=== PATIENT | female | born 1930 | race Caucasian/White ===

== ENCOUNTER 2016-11-19 13:43 | Emergency (ER) | payer MEDICARE, OTHER ==
--- NOTE | 2016-11-19 14:24 | EDM.PDOC ---
ED HPI GI/ABDOMINAL - General Chief Complaint: Gastrointestinal Problem Stated Complaint: FEEL SICK [id number] Time Seen by Provider: 11/19/16 14:24 Source of Information: Reports: Patient, RN, RN notes reviewed History Limitations: Reports: No limitations - History of Present Illness INITIAL COMMENTS - FREE TEXT/NARRATIVE: Complaining of watery diarrhea and nausea all day. Denies pain, bloating or distention. Denies bloody stool, black or dark stools. Denies fever or chills. Symptom Onset Date: 11/19/16 Timing/Duration: Reports: Getting worse Location: generalized Quality: Reports: ache Severity: moderate Associated Symptoms (-Female): Reports: denies other symptoms - Related Data Allergies/ADRs: Allergies Allergy/AdvReac Type Severity Reaction Status Date / Time codeine Allergy Cannot Verified 01/26/15 16:16 Remember Sulfa (Sulfonamide Allergy Airway Verified 01/26/15 16:16 Antibiotics) Tightness Home Meds: Home Meds Loperamide [Imodium] 2 mg PO ASDIRECTED 07/04/14 [History] Acetaminophen 325 mg PO ASDIRECTED PRN 01/26/15 [History] Levofloxacin [Levaquin] 500 mg PO Q24H 5 Days 01/28/15 [Rx] Past Medical History Other HEENT History: "wet eye gets injection every month" Other OB/BYN History: 3 vaginal deliveries Other Musculoskeletal History: "weak back" - Past Surgical History Other Musculoskeletal Surgeries/Procedures:: Right rotor cuff repair Social & Family History - Family History Family Medical History: Noncontributory - Tobacco Use Smoking Status *Q: Former Smoker Years of Tobacco use: 25 Used Tobacco, but Quit: Yes Month Tobacco Last Used: 6 Second Hand Smoke Exposure: Yes - Alcohol Use Days Per Week of Alcohol Use: 7 Number of Drinks Per Day: 2 Total Drinks Per Week: 14 - Recreational Drug Use Recreational Drug Use: No Drug Use in Last 12 Months: No - Living Situation & Occupation Occupation: retired ED ROS GENERAL - Review of Systems Review Of Systems: ROS reveals no pertinent complaints other than HPI. ED EXAM, GI/ABD - Physical Exam Exam: See Below Exam Limited By: No limitations General Appearance: alert, WD/WN, no apparent distress Eyes: bilateral: normal appearance Ears: normal external exam, normal canal, hearing grossly normal, normal TMs Nose: normal inspection, normal mucosa, no blood Throat/Mouth: Other (dry oral membranes, otherwise normal.) Head: atraumatic, normocephalic Neck: normal inspection, supple, non-tender, full range of motion Respiratory/Chest: no respiratory distress, lungs clear, normal breath sounds, no accessory muscle use, chest non-tender Cardiovascular: normal peripheral pulses, regular rate, rhythm, no edema, no gallop, no JVD, no murmur, no rub GI/Abdominal: hyperactive bowel sounds (slightly) Back Exam: normal inspection, full range of motion, NT Extremities: normal inspection, normal range of motion, non-tender, normal capillary refill, no pedal edema Neurological: alert, oriented, CN II-XII intact, normal cognition, normal gait, normal reflexes, no motor/sensory deficits Psychiatric: normal affect, normal mood Skin Exam: Warm, Dry, Intact, Normal color, No rash Course - Vital Signs Last Recorded V/S: Last Vital Signs Temp 36.7 C 11/19/16 14:58 Pulse 81 11/19/16 14:58 Resp 16 11/19/16 14:58 BP 160/57 H 11/19/16 14:58 Pulse Ox 100 11/19/16 14:58 - Orders/Labs/Meds Orders: Active Orders 24 hr Category Date Time Status Peripheral IV Care [RC] . DIRECTED Care 11/19/16 14:36 Active C DIFFICILE TOXIN BY PCR [MREF] Stat Lab 11/19/16 14:37 Uncollected CULTURE STOOL [RM] Stat Lab 11/19/16 14:36 Uncollected OCCULT BLOOD DIAGNOSTIC [OP] Stat Lab 11/19/16 14:36 Uncollected UA W/MICROSCOPIC [URIN] Stat Lab 11/19/16 16:28 Results Sodium Chloride 0.9% [Saline Flush] Med 11/19/16 14:36 Active 10 ml FLUSH ASDIRECTED PRN Peripheral IV Insertion Adult [OM.PC] Stat Oth 11/19/16 14:35 Ordered Medication Orders Sodium Chloride (Saline Flush) 10 ml FLUSH ASDIRECTED PRN PRN Reason: Keep Vein Open Last Admin: 11/19/16 15:35 Dose: 10 ml Labs: Laboratory Tests 11/19/16 11/19/16 11/19/16 Range/Units 14:45 14:45 16:28 WBC 6.6 (5.0-10.0) 10^3/uL RBC 3.91 L (4.2-5.4) 10^6/uL Hgb 12.2 (12.0-16.0) g/dL Hct 37.4 (37.0-47.0) % MCV 95.7 (80-100) fL MCH 31.2 (27.0-34.0) pg MCHC 32.6 L (33.0-35.0) g/dL Plt Count 192 (150-450) 10^3/uL Neut % (Auto) 89.5 H (42.2-75.2) % Lymph % (Auto) 5.6 L (20.5-50.1) % [place] % (Auto) 4.4 (2-8) % Eos % (Auto) 0.3 L (1.0-3.0) % Baso % (Auto) 0.2 (0.0-1.0) % Sodium 139 (135-145) mmol/L Potassium 4.4 (3.6-5.0) mmol/L Chloride 103 (101-111) mmol/L Carbon Dioxide 27.0 (21.0-31.0) mmol/L Anion Gap 13.4 BUN 16 (7-18) mg/dL Creatinine 0.6 (0.6-1.3) mg/dL Est Cr Clr Drug Dosing TNP Estimated GFR (MDRD) > 60 BUN/Creatinine Ratio 26.66 Glucose 127 H (74-105) mg/dL Calcium 9.3 (8.4-10.2) mg/dl Total Bilirubin 1.1 H (0.2-1.0) mg/dL AST 65 H (10-42) IU/L ALT 32 (10-60) IU/L Alkaline Phosphatase 73 (42-121) IU/L Total Protein 6.6 L (6.7-8.2) g/dl Albumin 4.1 (3.2-5.5) g/dl Globulin 2.5 Albumin/Globulin Ratio 1.64 Amylase 68 (28-100) U/L Lipase 79 H (22-51) U/L Urine Color Yellow (YELLOW) Urine Appearance Slightly cloudy (CLEAR) Urine pH 7.0 (5.0-9.0) Ur Specific [place] 1.020 (1.005-1.030) Urine Protein Negative (NEGATIVE) Urine Glucose (UA) Negative (NEGATIVE) Urine Ketones Negative (NEGATIVE) Urine Occult Blood Trace-intact H (NEGATIVE) Urine Nitrite Negative (NEGATIVE) Urine Bilirubin Negative (NEGATIVE) Urine Urobilinogen 1.0 (0.2-1.0) mg/dL Ur Leukocyte Esterase Small H (NEGATIVE) Meds: Medications Generic Name Dose Route Start Last Admin Trade Name Frenikki PRN Reason Stop Dose Admin Sodium Chloride 10 ml 11/19/16 14:36 11/19/16 15:35 Saline Flush FLUSH 10 ml ASDIRECTED PRN Administration Keep Vein Open Discontinued Medications Generic Name Dose Route Start Last Admin Trade Name Freq PRN Reason Stop Dose Admin Sodium Chloride 1,000 mls @ 500 mls/hr 11/19/16 14:38 11/19/16 15:35 Normal Saline IV 11/19/16 16:37 500 mls/hr .BOLUS ONE Administration Ondansetron HCl 4 mg 11/19/16 14:38 11/19/16 15:35 Zofran IV 11/19/16 14:39 4 mg ONETIME ONE Administration Departure - Departure Time of Disposition: 17:13 Disposition: Home, Self-Care 01 Condition: fair Clinical Impression: Diarrhea Qualifiers: Diarrhea type: unspecified type Qualified Code(s): R19.7 - Diarrhea, unspecified Instructions: Diarrhea, Adult, [id number] Forms: ED Department Discharge Additional Instructions: Diet as tolerated. Use over the counter Imodium AD as directed on the package if any further diarrhea. Follow up in clinic if not completedly improved in 1-2 days. Return to ER if worse at any time or any new symptoms develop. - My Orders Last 24 Hours: My Active Orders 11/19/16 14:35 Peripheral IV Insertion Adult [OM.PC] Stat 11/19/16 14:36 Peripheral IV Care [RC] . DIRECTED CULTURE STOOL [RM] Stat OCCULT BLOOD DIAGNOSTIC [OP] Stat Sodium Chloride 0.9% [Saline Flush] 10 ml FLUSH ASDIRECTED PRN 11/19/16 14:37 C DIFFICILE TOXIN BY PCR [MREF] Stat 11/19/16 16:28 UA W/MICROSCOPIC [URIN] Stat - Assessment/Plan Last 24 Hours: My Active Orders 11/19/16 14:35 Peripheral IV Insertion Adult [OM.PC] Stat 11/19/16 14:36 Peripheral IV Care [RC] . DIRECTED CULTURE STOOL [RM] Stat OCCULT BLOOD DIAGNOSTIC [OP] Stat Sodium Chloride 0.9% [Saline Flush] 10 ml FLUSH ASDIRECTED PRN 11/19/16 14:37 C DIFFICILE TOXIN BY PCR [MREF] Stat 11/19/16 16:28 UA W/MICROSCOPIC [URIN] Stat
[2016-11-19] MEDS ORDERED: Sodium Chloride 0.9% 10 ML Syringe FLUSH PRN (14:36)
[2016-11-19] MEDS ORDERED: Ondansetron 4 MG/2 ML SDV IV ONE (14:38)
[2016-11-19] MEDS ORDERED: Sodium Chloride 0.9% 1,000 ML IV ONE (14:38)
[2016-11-19 15:00] VITALS: BP 160/57
[2016-11-19 15:27] LABS: CHLORIDE,CL 103 mmol/L (101-111); SODIUM,NA 139 mmol/L (135-145)
[2016-11-19] MEDS ORDERED: Ondansetron 4 MG Tab.DIS ONE (18:04)
[2016-11-19] MEDS ORDERED: Ondansetron 4 MG Tab.DIS PO ONE (18:04)
== END 2016-11-19 18:12 | disposition home or self-care (01) ==
LOC: DL.ED 13:43
DX: R19.7 Diarrhea, unspecified (principal); Z88.2 Allergy status to sulfonamides; Z88.5 Allergy status to narcotic agent; Z87.891 Personal history of nicotine dependence; Z79.899 Other long term (current) drug therapy
CPT/HCPCS: 36415; 80053; 81001; 82150; 83690; 85025; 96361; 96374; 99284; J2405; J7030; J7050; A9270-GY

== ENCOUNTER 2017-06-26 04:56 | Emergency (ER) | payer MEDICARE, OTHER ==
[2017-06-26] MEDS ORDERED: Aspirin 81 MG Tab.Chew PO ONE (05:11)
[2017-06-26 05:55] LABS: CHLORIDE,CL 102 mmol/L (98-109); SODIUM,NA 139 mmol/L (138-146)
--- NOTE | 2017-06-26 07:57 | EDM.PDOC ---
<Amalia Hanley - Last Filed: 06/26/17 07:51> ED HPI GENERAL MEDICAL PROBLEM - General Chief Complaint: Chest Pain Stated Complaint: IN BY AMBULANCE-CHEST PAIN Time Seen by Provider: 06/26/17 04:56 Source of Information: Reports: Patient History Limitations: Reports: No Limitations - History of Present Illness INITIAL COMMENTS - FREE TEXT/NARRATIVE: ED via EMS with vague complaingt of chest /pain pressure but rubbing epigastric area, Notes onset yesterday and am with lower abdominal cramping and fullness, drank glass of prune juice in am and since still had some symtoms early evening took an immodium. no fever, no BM. No urinary complaints. Field not feel SOB. No nausea. Treatments BENCH MANAGER: Reports: Acetaminophen, Other Medication(s) - Related Data Allergies Allergy/AdvReac Type Severity Reaction Status Date / Time codeine Allergy Cannot Verified 01/26/15 16:16 Remember Sulfa (Sulfonamide Allergy Airway Verified 01/26/15 16:16 Antibiotics) Tightness Home Meds: Home Meds Loperamide [Imodium] 2 mg PO ASDIRECTED 07/04/14 [History] Acetaminophen 325 mg PO ASDIRECTED PRN 01/26/15 [History] Escitalopram [Lexapro] 1 tab PO DAILY 06/26/17 [History] Past Medical History HEENT History: Reports: Macular Degeneration Other HEENT History: "wet eye gets injection every month" Gastrointestinal History: Reports: Gastritis Other OB/BYN History: 3 vaginal deliveries Other Musculoskeletal History: "weak back" Psychiatric History: Reports: Anxiety - Past Surgical History Female Surgical History: Reports: Hysterectomy Other Musculoskeletal Surgeries/Procedures:: Right rotor cuff repair Social & Family History - Family History Family Medical History: Noncontributory - Tobacco Use Smoking Status *Q: Unknown Ever Smoked Years of Tobacco use: 25 Used Tobacco, but Quit: Yes Month Tobacco Last Used: 6 Second Hand Smoke Exposure: Yes - Caffeine Use Caffeine Use: Reports: Coffee, Tea - Alcohol Use Days Per Week of Alcohol Use: 7 Number of Drinks Per Day: 2 Total Drinks Per Week: 14 Date of Last Drink: 06/25/17 Time of Last Drink: 16:00 - Recreational Drug Use Recreational Drug Use: No Drug Use in Last 12 Months: No - Living Situation & Occupation Occupation: Retired ED ROS GENERAL - Review of Systems Review Of Systems: See Below Constitutional: Reports: Decreased Appetite. Denies: Fever, Chills HEENT: Reports: No Symptoms Respiratory: Reports: No Symptoms Cardiovascular: Reports: Chest Pain Endocrine: Reports: No Symptoms GI/Abdominal: Reports: Abdominal Pain (cramping). Denies: Hematochezia : Denies: Discharge, Dysuria, Flank Pain Neurological: Denies: Confusion, Numbness, Paresthesia, Pre-Existing Deficit, Seizure, Syncope, Tingling, Tremors, Trouble Speaking, Difficulty Walking, Weakness, Change in Speech, Gait Disturbance ED EXAM, GENERAL - Physical Exam Exam: See Below Exam Limited By: No Limitations General Appearance: Alert, No Apparent Distress Eye Exam: Bilateral Eye: EOMI, PERRL Ears: Normal External Exam Nose: Normal Inspection Throat/Mouth: Normal Inspection, Normal Lips Head: Atraumatic, Normocephalic Neck: Normal Inspection Respiratory/Chest: No Respiratory Distress, Lungs Clear, Normal Breath Sounds Cardiovascular: Normal Peripheral Pulses, Regular Rate, Rhythm GI/Abdominal: Normal Bowel Sounds, Soft, Non-Tender Back Exam: Normal Inspection, Full Range of Motion Extremities: Normal Inspection, Normal Range of Motion Neurological: Alert, Oriented, CN II-XII Intact, Normal Cognition Psychiatric: Normal Affect, Normal Mood Skin Exam: Warm, Dry, Intact, Normal Color, No Rash Course - Vital Signs Last Recorded V/S: Last Vital Signs Temp 37.2 C 06/26/17 15:17 Pulse 76 06/26/17 16:45 Resp 16 06/26/17 16:45 BP 164/72 H 06/26/17 16:45 Pulse Ox 100 06/26/17 16:45 - Orders/Labs/Meds Orders: Active Orders 24 hr Category Date Time Status EKG 12 Lead [EKG Documentation Completion] [RC] URGENT Care 06/26/17 09:30 Active Labs: Laboratory Tests 06/26/17 06/26/17 06/26/17 Range/Units 05:15 05:15 05:15 WBC 6.4 (5.0-10.0) 10^3/uL RBC 3.77 L (4.2-5.4) 10^6/uL Hgb 11.9 L (12.0-16.0) g/dL Hct 36.4 L (37.0-47.0) % MCV 96.6 (80-100) fL MCH 31.6 (27.0-34.0) pg MCHC 32.7 L (33.0-35.0) g/dL Plt Count 200 (150-450) 10^3/uL Neut % (Auto) 80.9 H (42.2-75.2) % Lymph % (Auto) 11.4 L (20.5-50.1) % [place] % (Auto) 7.2 (2-8) % Eos % (Auto) 0.3 L (1.0-3.0) % Baso % (Auto) 0.2 (0.0-1.0) % PT 10.4 (9.0-12.0) SEC INR 1.0 (0.9-1.2) Sodium 139 (138-146) mmol/L Potassium 3.9 (3.5-4.9) mmol/L Chloride 102 (98-109) mmol/L Carbon Dioxide 25 (24-29) mmol/L Anion Gap 15.9 BUN 10 (8-26) mg/dL Creatinine 0.6 (0.6-1.3) mg/dL Est Cr Clr Drug Dosing 60.56 mL/min Estimated GFR (MDRD) > 60 BUN/Creatinine Ratio 16.66 Glucose 128 H (70-105) mg/dL Calcium Total Bilirubin 1.3 H (0.2-1.0) mg/dL AST 55 H (10-42) IU/L ALT 25 (10-60) IU/L Alkaline Phosphatase 63 (42-121) IU/L CK-MB (CK-2) (0.4-4.7) ng/mL Troponin I < 0.02 (0.00-0.02) ng/ml Total Protein 6.6 L (6.7-8.2) g/dl Albumin 4.4 (3.2-5.5) g/dl Globulin 2.2 Albumin/Globulin Ratio 2.00 Amylase 62 (28-100) U/L Lipase 84 H (22-51) U/L 06/26/17 06/26/17 Range/Units 05:15 09:38 WBC (5.0-10.0) 10^3/uL RBC (4.2-5.4) 10^6/uL Hgb (12.0-16.0) g/dL Hct (37.0-47.0) % MCV (80-100) fL MCH (27.0-34.0) pg MCHC (33.0-35.0) g/dL Plt Count (150-450) 10^3/uL Neut % (Auto) (42.2-75.2) % Lymph % (Auto) (20.5-50.1) % [place] % (Auto) (2-8) % Eos % (Auto) (1.0-3.0) % Baso % (Auto) (0.0-1.0) % PT (9.0-12.0) SEC INR (0.9-1.2) Sodium (138-146) mmol/L Potassium (3.5-4.9) mmol/L Chloride (98-109) mmol/L Carbon Dioxide (24-29) mmol/L Anion Gap BUN (8-26) mg/dL Creatinine (0.6-1.3) mg/dL Est Cr Clr Drug Dosing mL/min Estimated GFR (MDRD) BUN/Creatinine Ratio Glucose (70-105) mg/dL Calcium Total Bilirubin (0.2-1.0) mg/dL AST (10-42) IU/L ALT (10-60) IU/L Alkaline Phosphatase (42-121) IU/L CK-MB (CK-2) 1.60 (0.4-4.7) ng/mL Troponin I < 0.02 (0.00-0.02) ng/ml Total Protein (6.7-8.2) g/dl Albumin (3.2-5.5) g/dl Globulin Albumin/Globulin Ratio Amylase (28-100) U/L Lipase (22-51) U/L Meds: Medications Discontinued Medications Generic Name Dose Route Start Last Admin Trade Name Freq PRN Reason Stop Dose Admin Aspirin 324 mg 06/26/17 05:11 06/26/17 05:43 Aspirin PO 06/26/17 05:12 324 mg ONETIME ONE Administration Iopamidol 75 ml 06/26/17 15:54 06/26/17 16:26 Isovue-300 (61%) IVPUSH 06/26/17 15:55 75 ml ONETIME ONE Administration Promethazine HCl 25 mg 06/26/17 14:02 06/26/17 14:24 Phenergan IM 06/26/17 14:03 Not Given ONETIME ONE Simethicone 80 mg 06/26/17 10:21 06/26/17 11:45 Simethicone PO 06/26/17 10:22 Not Given ONETIME ONE Simethicone 160 mg 06/26/17 11:00 06/26/17 10:59 Simethicone PO 06/26/17 11:01 160 mg ONETIME ONE Administration - Re-Assessments/Exams Free Text/Narrative Re-Assessment/Exam: 06/26/17 07:55 General discomfort improving, slight pressure improving. now rubbing lower abdomen and low epigastric area. Troponin and EKG Unremarkable. Plan to repeat EKG and trop. Departure - Departure Disposition: Home, Self-Care 01 Clinical Impression: Pain of upper abdomen, Dilated bile duct Forms: ED Department Discharge Additional Instructions: Rest Increase intake of Fluids ( Water / Juice) F/U w/ PCP for re-evaluation <Gold Singh - Last Filed: 06/26/17 17:04> Course - Vital Signs Text/Narrative:: Labs show : Elevated Bili and LFT Abdomen U/S show Dilated Bile ducts Abdomen CT show Dilation of Extrahepatic Common Bile duct 17mm Departure - Departure Time of Disposition: 17:03 Condition: Good
[2017-06-26] MEDS ORDERED: Simethicone 80 MG Tab.Chew PO ONE ×2 (10:21→11:00)
[2017-06-26] MEDS ORDERED: Promethazine 25 MG/ML SDV IM ONE (14:02)
--- NOTE | 2017-06-26 15:04 | US ---
Clinical history: 86-year-old female with diffuse upper abdominal pain and abnormally elevated liver function tests, serum lipase and bilirubin who has had her gallbladder removed prior to January 2015 (ap pendectomy and hysterectomy also removed). Interpretation: 1. Surgically absent gallbladder. 2. Homogeneous normal sonodensity of the liver, where visualized i.e. no discrete intrahepatic cystic or solid mass lesion however, distended extrahepatic biliary ducts (common hepatic duct 10 mm and th e common bile duct 15 mm) even considering "postcholecystectomy" patient. 3. Normal spleen. Nonvisualization pancreas (gas). Upper abdominal aorta unremarkable. 4. Several benign cystic lesions (0.2 x 2.9 cm diameter lower pole and 2.3 x 1.8 cm diameter upper po le cyst) left kidney. Right kidney unremarkable. 5. No ascites. CONCLUSION: Possible choledocholithiasis (dilated extrahepatic biliary ducts and nonvisualization of the pancreas). Suggest CT scan upper abdomen. No ascites and the spleen unremarkable.
[2017-06-26] MEDS ORDERED: Iopamidol 612 MG/ML 75 ML Bottle IVPUSH ONE (15:54)
[2017-06-26 16:45] VITALS: BP 164/72
--- NOTE | 2017-06-26 16:49 | CT ---
Clinical history: 86-year-old 130 pound female with diffuse upper abdominal pain, abnormally elevated LFTs/bilirubin, and dilated extrahepatic biliary ducts on sonogram (nonvisualization pancreas) who h as had previous cholecystectomy, appendectomy and hysterectomy. Scan technique: Volume acquisition of data from the abdomen and pelvis obtained without oral contrast but the before/during/after intravenous ministration 75 cc nonionic Isovue contrast while the patien t was lying supine on the Siemens multislice scanner [place], [place]. All data archived in the PACS system for storage, reformatting and study. Interpretation: 1. Pronounced dilatation extrahepatic common bile duct (17 mm diameter CBD) patient with surgically a bsent gallbladder. 2. *No sign of intraluminal calcification or stone (no choledocholithiasis) and probable postoperativ e dilatation extrahepatic biliary ducts (but differential diagnosis includes distal common bile duct stricture or mass at the ampulla of Vater). Normal pancreas. 3. Generalized mild dilatation of the intrahepatic biliary ducts. No discrete intrahepatic mass (cyst ic or solid). 4. Stomach, spleen, pancreas and adrenal glands unremarkable. No discrete pancreatic mass lesion, per ipancreatic edema, major pancreatic duct dilatation or abnormal pancreatic calcifications. 5. Large 2.4 cm diameter benign appearing cyst posterior cortex upper pole left kidney and a larger 2 .5 x 3.5 cm diameter cyst lower pole ipsilateral left kidney. Right kidney unremarkable. No sign of n ephrolithiasis or obstructive uropathy. 6. Numerous diverticula rectosigmoid colon without associated signs of inflammation. Scattered divert icula transverse colon. 7. No abdominal or pelvic mass lesion, inflammatory "dirty" peritoneal fat, signs of mechanical bowel obstruction, ascites or free intraperitoneal air. Lung bases clear. 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 Note: Apparent tiny punctate calcification distal common bile duct on coronal slice #20 lies outside the duct on corresponding axial slices #21. Conclusion: Diverticulosis rectosigmoid colon. *Abnormally dilated intra and extrahepatic biliary du cts (cholecystectomy) but no sign of pancreatic mass or choledocholithiasis confirmed. Renal cysts le ft kidney (x2). Lower lumbar disc disease. Gastroenterology consultation suggested with consideration follow-up MRI and endoscopic evaluation.
--- NOTE | 2017-06-27 20:25 | EKG ---
06/26/2017 - PAM BOYD - FINDINGS: I reviewed the EKG and agree with the machine reading. [facility] /[id number]
== END 2017-06-26 17:16 | disposition home or self-care (01) ==
LOC: DL.ED 04:56
DX: K83.8 Other specified diseases of biliary tract (principal); Z88.5 Allergy status to narcotic agent; Z88.2 Allergy status to sulfonamides; Z79.899 Other long term (current) drug therapy
CPT/HCPCS: 36415; 71010; 74000; 74177; 76700; 80053; 82150; 82553; 83690; 84484; 85025; 85610; 93005; 93010; 99285; A9270; Q9967; 99284

== ENCOUNTER 2020-01-29 09:48 | Day surgery (SDC) | payer MEDICARE, OTHER ==
[2020-01-29] MEDS ORDERED: Sodium Chloride 0.9% 10 ML Syringe IV ONE (09:49)
[2020-01-29] MEDS ORDERED: Dexamethasone 4 MG/ML SDV IV ONE (09:49)
[2020-01-29] MEDS ORDERED: Midazolam 1 MG/ML 2 ML SDV IV ONE (09:49)
[2020-01-29] MEDS ORDERED: Proparacaine 0.5% Ophth Soln 15 ML Bottle EYELF ONE (10:00)
[2020-01-29] MEDS ORDERED: Cataract Ophth Solution EYELF ONE (10:00)
[2020-01-29] MEDS ORDERED: Timolol Maleate 0.5% Ophth Soln 5 ML Bottle EYELF ONE (10:00)
[2020-01-29] MEDS ORDERED: Povidone-Iodine 5% Sterile Ophth Soln 30 ML Bottle EYELF ONE ×2 (10:00→10:50)
[2020-01-29] MEDS ORDERED: Sodium Chloride 0.9% 10 ML Syringe FLUSH PRN (10:00)
[2020-01-29] MEDS ORDERED: Ondansetron 4 MG/2 ML SDV IVPUSH PRN (10:00)
[2020-01-29] MEDS ORDERED: Phenylephrine 10% Ophth Soln 5 ML Bot EYELF PRN (10:00)
[2020-01-29] MEDS ORDERED: Tropicamide 1% Ophth Soln 15 ML Bottle EYELF ONE (10:00)
[2020-01-29] MEDS ORDERED: Acetaminophen 325 MG Tab PO PRN (10:00)
[2020-01-29] MEDS ORDERED: Moxifloxacin 0.5% Ophth Soln 3 ML Bottle EYELF ONE (10:00)
[2020-01-29] MEDS: Phenylephrine 10% Ophth Soln 5 ML Bot EYELF ONE ×2 (10:20→10:22)
[2020-01-29 10:25] VITALS: BP 140/68; PULSE 76
[2020-01-29] MEDS ORDERED: Tetracaine HCl/PF 0.5% 4 ML Bottle EYELF ONE (10:32)
[2020-01-29] MEDS ORDERED: Vancomycin 500 MG SDV EYELF ONE ×2 (10:40)
[2020-01-29] MEDS ORDERED: Carbachol 0.01% Intraocular 1.5 ML Vial EYELF ONE (10:40)
[2020-01-29] MEDS ORDERED: Balanced Salt Solution Ophth Irrig 500 ML Bottle IOCULAR ONE (10:40)
[2020-01-29] MEDS ORDERED: Lidocaine 1% 30 ML SDV INJECT ONE (10:40)
[2020-01-29] MEDS ORDERED: Chondroitin Sulfate/Hyaluronate Sodium Ophth Inj 0.5 ML Syringe IOCULAR ONE (10:42)
[2020-01-29] MEDS ORDERED: Chondroitin Sulfate/Hyaluronate Sodium Ophth Inj 0.75 ML Syringe EYELF ONE (10:42)
[2020-01-29] MEDS ORDERED: Diclofenac Sodium 0.1% Ophth Soln 5 ML Bottle EYELF ONE (10:50)
[2020-01-29] MEDS ORDERED: Dexamethasone/Tobramycin 0.1-0.3% Ophth Oint 3.5 GM Tube EYELF ONE ×2 (10:50)
[2020-01-29] MEDS ORDERED: Apraclonidine 0.5% Ophth Soln 5 ML Bot EYELF ONE (10:50)
--- NOTE | 2020-01-29 13:13 | OR ---
DATE: 01/29/2020 PREOPERATIVE DIAGNOSES: 1. Visually significant mixed cataract, left eye. 2. Primary open angle glaucoma, left eye. POSTOPERATIVE DIAGNOSES: 1. Visually significant mixed cataract, left eye. 2. Primary open angle glaucoma, left eye. PROCEDURES: 1. Extracapsular cataract extraction with intraocular lens implant. 2. Placement of iStent for glaucoma control. SURGEON: Oneal Fraser MD ANESTHESIA: Local MAC. INDICATION: Ms. Galvan was seen in the clinic. She has complained of a slow progressive decrease in vision. The examination revealed visually significant mixed cataract and moderate primary open-angle glaucoma. I explained options. I offered cataract surgery and I explained risks including the potential for infection, retinal detachment, loss of vision, need for additional surgery, amongst others. We discussed implant options. I recommended a monofocal implant. I also recommended the iStent. She understands that her visual potential may be limited by optic nerve and retinal health. OPERATIVE DESCRIPTION: The patient was prepped and draped in a sterile fashion and topical anesthesia was applied. Attention was placed on the operative eye. A sterile lid speculum was placed to allow operative exposure. Paracentesis was made temporal. Intracameral lidocaine was administered. Viscoelastic was injected. A full-thickness corneal incision was made using the trapezoidal blade. Bent needle cystotome was then used to make a small danuta in the anterior capsule and a 360-degree curvilinear capsulorrhexis was created. Nucleus was then hydrodissected and hydrodelinated using balanced saline solution. Nucleus was then decompressed centrally and rotated and noted to be free of adhesions. Nucleus was then removed using the phacoemulsification handpiece. Additional viscoelastic was then injected into the capsular bag and the intraocular lens was inserted into the capsular bag. The iStent portion of the procedure was then performed. Following removal of the nucleus and cortex, the irrigation and aspiration handpiece was inserted to remove viscoelastic from the posterior surface of the IOL. Additional viscoelastic was then inserted into the anterior chamber angle directly opposite the corneal incision. Miochol was injected into the nasal iris to promote pupillary contraction. The patient's head was then rotated 35 degrees away from the initial position. The operating microscope was also rotated 35 degrees to achieve the proper orientation. The gonioprism was then placed onto the eye. The iStent was then inserted into the anterior chamber with the right hand and the stent was introduced into the pigmented trabecular meshwork. The stent was advanced beneath the trabecular meshwork until approximately two-thirds of the body was covered and then the stent was released from the insertion device. The stent was then tapped into its final resting position using the insertion device. The device was then reinspected to ensure that it was securely in position. The viscoelastic was aspirated from the anterior chamber. Wound and paracentesis sites were hydrated using balanced saline solution. Vancomycin 0.1 mL was injected into the anterior chamber. Intraocular lens was inspected and noted to be clear and well centered. Postoperative drops were placed and a sterile eye patch and shield were placed over the operative eye. The patient was then transported to the postoperative recovery area having tolerated the procedure well. No complications occurred. [facility] /[id number]
== END 2020-01-29 11:54 | disposition home or self-care (01) ==
LOC: DL.SDS 09:48
PROVIDERS: ATTEND Ophthalmology
DX: H40.1122 Primary open-angle glaucoma, left eye, moderate stage (principal); H25.812 Combined forms of age-related cataract, left eye; E78.5 Hyperlipidemia, unspecified; R73.03 Prediabetes; D51.9 Vitamin B12 deficiency anemia, unspecified; Z87.891 Personal history of nicotine dependence; Z79.899 Other long term (current) drug therapy; Z88.2 Allergy status to sulfonamides; Z88.5 Allergy status to narcotic agent
CPT/HCPCS: 66183; 66984; A9270; C1783; J1100; J2001; J2250; J3370; V2632; 00142

== ENCOUNTER 2020-02-05 08:25 | Day surgery (SDC) | payer MEDICARE, OTHER ==
[2020-02-05] MEDS ORDERED: Midazolam 1 MG/ML 2 ML SDV IV ONE (08:26)
[2020-02-05] MEDS ORDERED: Dexamethasone 4 MG/ML SDV IV ONE (08:26)
[2020-02-05] MEDS ORDERED: Sodium Chloride 0.9% 10 ML Syringe IV ONE (08:26)
[2020-02-05] MEDS ORDERED: Moxifloxacin 0.5% Ophth Soln 3 ML Bottle EYERT ONE (08:30)
[2020-02-05] MEDS ORDERED: Acetaminophen 325 MG Tab PO PRN (08:30)
[2020-02-05] MEDS ORDERED: Proparacaine 0.5% Ophth Soln 15 ML Bottle EYERT ONE (08:30)
[2020-02-05] MEDS ORDERED: Timolol Maleate 0.5% Ophth Soln 5 ML Bottle EYERT ONE (08:30)
[2020-02-05] MEDS ORDERED: Phenylephrine 10% Ophth Soln 5 ML Bot EYERT ONE (08:30)
[2020-02-05] MEDS ORDERED: Povidone-Iodine 5% Sterile Ophth Soln 30 ML Bottle EYERT ONE ×2 (08:30→09:16)
[2020-02-05] MEDS ORDERED: Sodium Chloride 0.9% 10 ML Syringe FLUSH PRN (08:30)
[2020-02-05] MEDS ORDERED: Tropicamide 1% Ophth Soln 15 ML Bottle EYERT ONE (08:30)
[2020-02-05] MEDS ORDERED: Cataract Ophth Solution EYERT ONE (08:30)
[2020-02-05] MEDS ORDERED: Phenylephrine 10% Ophth Soln 5 ML Bot EYERT PRN (08:30)
[2020-02-05] MEDS ORDERED: Ondansetron 4 MG/2 ML SDV IVPUSH PRN (08:30)
[2020-02-05] MEDS ORDERED: Tetracaine HCl/PF 0.5% 4 ML Bottle EYERT ONE (09:16)
[2020-02-05] MEDS ORDERED: Vancomycin 500 MG SDV EYERT ONE (09:20)
[2020-02-05] MEDS ORDERED: Lidocaine 1% 30 ML SDV INJECT ONE (09:20)
[2020-02-05] MEDS ORDERED: Chondroitin Sulfate/Hyaluronate Sodium Ophth Inj 0.5 ML Syringe IOCULAR ONE (09:25)
[2020-02-05] MEDS ORDERED: Balanced Salt Solution Ophth Irrig 500 ML Bottle IOCULAR ONE (09:25)
[2020-02-05] MEDS ORDERED: Chondroitin Sulfate/Hyaluronate Sodium Ophth Inj 0.75 ML Syringe EYERT ONE (09:25)
[2020-02-05] MEDS ORDERED: Carbachol 0.01% Intraocular 1.5 ML Vial EYERT ONE (09:28)
[2020-02-05] MEDS ORDERED: Dexamethasone/Tobramycin 0.1-0.3% Ophth Oint 3.5 GM Tube EYERT ONE (09:31)
[2020-02-05] MEDS ORDERED: Diclofenac Sodium 0.1% Ophth Soln 5 ML Bottle EYERT ONE (09:31)
[2020-02-05] MEDS ORDERED: Apraclonidine 0.5% Ophth Soln 5 ML Bot EYERT ONE (09:31)
[2020-02-05 11:03] VITALS: BP 154/48; PULSE 60
--- NOTE | 2020-02-05 13:40 | OR ---
DATE: 02/05/2020 PREOPERATIVE DIAGNOSES: 1. Visually significant cataract, right eye. 2. Primary open angle glaucoma, right eye. POSTOPERATIVE DIAGNOSES: 1. Visually significant cataract, right eye. 2. Primary open angle glaucoma, right eye. PROCEDURES: 1. Extracapsular cataract extraction with intraocular lens implant. 2. Placement of iStent for glaucoma control. SURGEON: Oneal Fraser MD ANESTHESIA: Local MAC. INDICATION: Ms. Galvan was seen in the clinic. She has complained of a progressive decrease in vision. The examination revealed visually significant cataract. She complains of difficulty reading, difficulty needing more light. Examination also reveals moderate primary open-angle glaucoma. I explained options, offered cataract surgery, and I explained risks including the potential for infection, retinal detachment, loss of vision, need for additional surgery, amongst others. Also, I explained that because of her glaucoma and macular degeneration, her visual potential may be limited. We discussed implant options and I recommended a monofocal implant. I recommended surgery with the iStent. OPERATIVE DESCRIPTION: The patient was prepped and draped in a sterile fashion and topical anesthesia was applied. Attention was placed on the operative eye. A sterile lid speculum was placed to allow operative exposure. Paracentesis was made temporal. Intracameral lidocaine was administered. Viscoelastic was injected. A full-thickness corneal incision was made using the trapezoidal blade. Bent needle cystotome was then used to make a small danuta in the anterior capsule and a 360-degree curvilinear capsulorrhexis was created. Nucleus was then hydrodissected and hydrodelinated using balanced saline solution. Nucleus was then decompressed centrally and rotated and noted to be free of adhesions. Nucleus was then removed using the phacoemulsification handpiece. Additional viscoelastic was then injected into the capsular bag and the intraocular lens was inserted into the capsular bag. The iStent portion of the procedure was then performed. Following removal of the nucleus and cortex, the irrigation and aspiration handpiece was inserted to remove viscoelastic from the posterior surface of the IOL. Additional viscoelastic was then inserted into the anterior chamber angle directly opposite the corneal incision. Miochol was injected into the nasal iris to promote pupillary contraction. The patient's head was then rotated 35 degrees away from the initial position. The operating microscope was also rotated 35 degrees to achieve the proper orientation. The gonioprism was then placed onto the eye. The iStent was then inserted into the anterior chamber with the right hand and the stent was introduced into the pigmented trabecular meshwork. The stent was advanced beneath the trabecular meshwork until approximately two-thirds of the body was covered and then the stent was released from the insertion device. The stent was then tapped into its final resting position using the insertion device. The device was then reinspected to ensure that it was securely in position. The viscoelastic was aspirated from the anterior chamber. Wound and paracentesis sites were hydrated using balanced saline solution. Vancomycin 0.1 mL was injected into the anterior chamber. Intraocular lens was inspected and noted to be clear and well centered. Postoperative drops were placed and a sterile eye patch and shield were placed over the operative eye. The patient was then transported to the postoperative recovery area having tolerated the procedure well. No complications occurred. [facility] /[id number]
== END 2020-02-05 10:45 | disposition home or self-care (01) ==
LOC: DL.SDS 08:25
PROVIDERS: ATTEND Ophthalmology
DX: H40.1112 Primary open-angle glaucoma, right eye, moderate stage (principal); H26.9 Unspecified cataract; R73.03 Prediabetes; E78.5 Hyperlipidemia, unspecified; D64.9 Anemia, unspecified; E53.8 Deficiency of other specified B group vitamins; Z87.891 Personal history of nicotine dependence; Z88.5 Allergy status to narcotic agent; Z79.899 Other long term (current) drug therapy; Z88.2 Allergy status to sulfonamides
CPT/HCPCS: 66183; 66984; A9270; C1783; J1100; J2001; J2250; J3370; V2632